=== PATIENT | female | born 1960 ===

== ENCOUNTER 2017-05-27 07:57 | Emergency (ER) | payer OTHER, SELFPAY ==
[2017-05-27 07:58] VITALS: BMI 25.4
[2017-05-27 08:04] VITALS: O2SAT 100
--- NOTE | 2017-05-27 08:47 | C.PDOC ---
History Of Present Illness Patient is a 57 y/o F presenting with report of taking medication in error. 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 She reports that this medication was prescribed to her by her PMD for depression but she reports that she does not want to take it. She reports that she was concerned about the side effects of this medication so she came to the ED. She reports that immediately after realizing she took the wrong medication she felt some dry mouth and anxiety but reports that she feels better now. She denies homicidal or suicidal ideation. Time Seen by Provider: 05/27/17 08:17 Chief Complaint (Nursing): Medical Clearance Past Medical History Vital Signs: Last Vital Signs Temp 98.2 F 05/27/17 08:03 Pulse 64 05/27/17 08:03 Resp 18 05/27/17 08:20 BP 135/79 05/27/17 08:03 Pulse Ox 100 05/27/17 08:49 - Medical History PMH: Hypothyroidism Denies: Chronic Kidney Disease, Seizures Surgical History: Cholecystectomy Family History: States: Unknown Family Hx - Social History Hx Tobacco Use: No Hx Alcohol Use: No Hx Substance Use: No - Immunization History Hx Tetanus Toxoid Vaccination: No Hx Influenza Vaccination: No Hx Pneumococcal Vaccination: No Review Of Systems Constitutional: Negative for: Fever, Chills Cardiovascular: Negative for: Chest Pain, Palpitations Respiratory: Negative for: Cough, Shortness of Breath, SOB with Excertion, Wheezing Gastrointestinal: Negative for: Nausea, Vomiting, Abdominal Pain, Diarrhea, Constipation Psych: Positive for: Anxiety (now resolved). Negative for: Depression, Suicidal ideation ED Course And Treatment O2 Sat by Pulse Oximetry: 100 Medical Decision Making Medical Decision Making: Patient is resting comfortably in NAD. Vitals WNL. Normal physical exam. She is asyptomatic in ED and tolerating po. She was provided reassurance that taking one dose of medication in error should not cause any side effects. She was reassured and instructed to follow-up with PMD and discuss with him why she does not want to take a medication he prescribed. She is requesting refill of her levothyroxine refill (50mcg) and will provide until she can follow-up with PMD Disposition - Disposition Disposition: HOME/ ROUTINE Disposition Time: 08:43 Condition: GOOD Additional Instructions: Follow-up with PMD within 2 days. Do not store medication you are not taking with medication you are taking to avoid medication errors. Speak with your PMD about medication you should be taking. Return to ED if condition worsens. Prescriptions: Levothyroxine [Synthroid] 0.05 mg PO DAILY #30 tab Forms: [employer] (Kinyarwanda) - Clinical Impression Clinical Impression: Medication administered in error
[2017-05-27 09:04] VITALS: BP 135/83; PULSE 52; RESP 20; TEMP 97.4
== END 2017-05-27 09:06 | disposition home or self-care (01) ==
LOC: C.ER 07:57
DX: T43.221A Poisoning by selective serotonin reuptake inhibitors, accidental (unintentional), initial encounter (principal)

== ENCOUNTER 2017-10-11 18:10 | Emergency (ER) | payer OTHER ==
[2017-10-11 18:10] VITALS: BMI 24.8
[2017-10-11 18:25] VITALS: TEMP 98.6
[2017-10-11 19:05] LABS: URINE BACTERIA RARE (<OCC); URINE BILIRUBIN NEGATIVE (NEGATIVE); URINE CLARITY Clear (Clear); URINE COLOR Yellow (YELLOW); URINE GLUCOSE (UA) NORMAL (Normal); URINE LEUKOCYTE ESTERASE NEG Leu/uL (Negative); URINE PROTEIN NEGATIVE (NEGATIVE); URINE UROBILINOGEN NORMAL mg/dL (0.2-1.0)
[2017-10-11 19:13] LABS: URINE BLOOD NEGATIVE (NEGATIVE)
--- NOTE | 2017-10-11 19:13 | C.PDOC ---
History Of Present Illness 57 year old female presents to the ED for evaluation of sore throat and generalized body aches which began around 1 week ago. Patient also reports dysuria and states she has a history of multiple UTIs. Patient states she took one 200mg tablet of Motrin both yesterday and the day before yesterday. She denies fever, chills, nausea, vomiting, abdominal pain. Time Seen by Provider: 10/11/17 18:30 Chief Complaint (Nursing): Flu-like Symptoms History Per: Patient History/Exam Limitations: no limitations Onset/Duration Of Symptoms: Other (1 week) Current Symptoms Are (Timing): Still Present Associated Symptoms: Sore Throat. denies: Fever, Chills, Nausea, Vomiting Additional History Per: Patient Past Medical History Reviewed: Historical Data, Nursing Documentation, Vital Signs Vital Signs: Last Vital Signs Temp 98.6 F 10/11/17 18:23 Pulse 58 L 10/11/17 18:23 Resp 18 10/11/17 18:23 BP 124/80 10/11/17 18:23 Pulse Ox 97 10/11/17 19:13 - Medical History PMH: Hypothyroidism Denies: Chronic Kidney Disease, Seizures Surgical History: Cholecystectomy Family History: States: Unknown Family Hx - Social History Hx Tobacco Use: No Hx Alcohol Use: No Hx Substance Use: No - Immunization History Hx Tetanus Toxoid Vaccination: No Hx Influenza Vaccination: No Hx Pneumococcal Vaccination: No Review Of Systems Constitutional: Negative for: Fever, Chills ENT: Positive for: Throat Pain Gastrointestinal: Negative for: Nausea, Vomiting, Abdominal Pain Musculoskeletal: Positive for: Other (generalized body aches ) Physical Exam - Physical Exam Appears: Non-toxic, No Acute Distress Skin: Normal Color, Warm, Dry Head: Atraumatic, Normacephalic Eye(s): bilateral: Normal Inspection Ear(s): Bilateral: Normal Nose: Normal, No Discharge Oral Mucosa: Moist Throat: Normal, No Erythema, No Exudate Neck: Supple Chest: Symmetrical, No Deformity, No Tenderness Cardiovascular: Rhythm Regular, No Murmur Respiratory: Normal Breath Sounds, No Rales, No Rhonchi, No Wheezing Extremity: Normal ROM, Capillary Refill (less than 2 seconds ) Neurological/Psych: Oriented x3, Normal Speech, Normal Cognition ED Course And Treatment - Laboratory Results Lab Interpretation: Normal (UA neg.) O2 Sat by Pulse Oximetry: 97 (on RA) Pulse Ox Interpretation: Normal Progress Note: UA ordered and reviewed. Motrin PO administered. Medical Decision Making Medical Decision Making: mild viral syndrome for 1 week, normal exam and normal VS's sore throat but normal exam no LUDY/fevers dysuria with h/o UTI's, normal UA improved with motrin PO Disposition Doctor Will See Patient In The: Office Counseled Patient/Family Regarding: Studies Performed, Diagnosis - Disposition Disposition: HOME/ ROUTINE Disposition Time: 19:26 Condition: GOOD Forms: [employer] (Indonesian) - Clinical Impression Clinical Impression: Sore throat (viral), Dysuria - Scribe Statement The provider has reviewed the documentation as recorded by the Scribe (Cristina Medina) Provider Attestation: All medical record entries made by the Scribe were at my direction and personally dictated by me. I have reviewed the chart and agree that the record accurately reflects my personal performance of the history, physical exam, medical decision making, and the department course for this patient. I have also personally directed, reviewed, and agree with the discharge instructions and disposition.
[2017-10-11 19:37] VITALS: BP 118/78; PULSE 62; RESP 16; O2SAT 98
== END 2017-10-11 19:35 | disposition home or self-care (01) ==
LOC: C.ER 18:10
DX: J02.8 Acute pharyngitis due to other specified organisms (principal); B97.89 Other viral agents as the cause of diseases classified elsewhere; R30.0 Dysuria

== ENCOUNTER 2018-01-24 05:05 | Emergency (ER) | payer OTHER ==
[2018-01-24 05:05] VITALS: BMI 24.8
[2018-01-24] MEDS ORDERED: Acetaminophen-Codeine 300/30 mg Tab PO STA (05:36)
[2018-01-24] MEDS ORDERED: Acetaminophen-Codeine 300/30 mg Tab PO ONE (05:43)
--- NOTE | 2018-01-24 05:43 | C.PDOC ---
History Of Present Illness 58 year old female presents to the ER with a complaint of sore throat for the past 2 weeks. Patient took OTC motrin and gargled warm water with no relief. Patient also complains of bilateral eye drainage w/ yellowish discharge, eye discomfort/itching, headache, and nasal congestion. Denies cough, SOB, or change in vision. Time Seen by Provider: 01/24/18 05:17 Chief Complaint (Nursing): Cough, Cold, Congestion History Per: Patient History/Exam Limitations: no limitations Onset/Duration Of Symptoms: Days Current Symptoms Are (Timing): Still Present Location Of Pain: None Sick Contacts (Context): None Associated Symptoms: Sore Throat, Nasal Congestion, Other (Headache, eye discomfort/discharge/itching) Ear Symptoms: Bilateral: None Recent travel outside of the [place]: No Past Medical History Reviewed: Historical Data, Nursing Documentation, Vital Signs Vital Signs: Last Vital Signs Temp 98.3 F 01/24/18 05:12 Pulse 68 01/24/18 05:12 Resp 16 01/24/18 05:12 BP 150/91 H 01/24/18 05:12 Pulse Ox 98 01/24/18 05:49 - Medical History PMH: Hypothyroidism Denies: Chronic Kidney Disease, Seizures Surgical History: Cholecystectomy Family History: States: Unknown Family Hx - Social History Hx Tobacco Use: No Hx Alcohol Use: No Hx Substance Use: No - Immunization History Hx Tetanus Toxoid Vaccination: No Hx Influenza Vaccination: No Hx Pneumococcal Vaccination: No Review Of Systems Constitutional: Negative for: Fever, Chills Eyes: Positive for: Other (drainage w/ yellowish discharge, discomfort/itching) . Negative for: Vision Change ENT: Positive for: Nose Congestion, Throat Pain Respiratory: Negative for: Cough, Shortness of Breath Neurological: Positive for: Headache Physical Exam - Physical Exam Appears: Non-toxic Skin: Normal Color, Warm, Dry Head: Atraumatic, Normacephalic Eye(s): bilateral: PERRL, EOMI, Other (Ciliary injection, watery discharge, no crusting) Ear(s): Bilateral: Normal Nose: Normal Oral Mucosa: Moist Throat: Normal, No Erythema, No Exudate Neck: Normal, Supple Lymphatic: Adenopathy (Submandibular) Chest: Symmetrical, No Tenderness Cardiovascular: Rhythm Regular Respiratory: Normal Breath Sounds, No Rales, No Rhonchi, No Wheezing Neurological/Psych: Oriented x3, Normal Speech ED Course And Treatment O2 Sat by Pulse Oximetry: 98 (room air) Pulse Ox Interpretation: Normal Progress Note: Rapid strep ordered, result was negative. Viscous lidocaine and tylenol w/ codeine administered. Patient reports improvement of symptoms, she is resting comfortably in the ER in no acute distress, vitals are stable, will discharge home with Rx and instructions to follow up with PMD or return if symptoms worsen. Disposition Counseled Patient/Family Regarding: Diagnosis, Need For Followup, Rx Given - Disposition Disposition: HOME/ ROUTINE Disposition Time: 06:30 Condition: STABLE Additional Instructions: Use CHLORASEPTIC SPRAY TO SPRAY THROT PRIOR TO EATING/ DRINKING WARM SALT GARGLE TAKE MEDICATIONS DIRECTED RETURN TO ER IF WORSE Prescriptions: Cetirizine HCl [Zyrtec] 10 mg PO DAILY #20 capsule Dexamethasone/Tobramycin [Tobradex 0.1%-0.3% 2.5 Ml] 1 drop OP BID #1 bottle Naproxen [Naprosyn] 1 tab PO BID PRN #14 tab PRN Reason: Pain Instructions: Viral Pharyngitis (DC), Conjunctivitis (Noninfectious Pinkeye) Forms: [employer] (Greek) Print Language: MOHAWK - Clinical Impression Clinical Impression: Pharyngitis, Conjunctivitis - PA / FRAMER / Resident Statement MD/DO has reviewed & agrees with the documentation as recorded. - Scribe Statement The provider has reviewed the documentation as recorded by the Scribameena Carroll All medical record entries made by the Melodieibameena were at my direction and personally dictated by me. I have reviewed the chart and agree that the record accurately reflects my personal performance of the history, physical exam, medical decision making, and the department course for this patient. I have also personally directed, reviewed, and agree with the discharge instructions and disposition.
[2018-01-24 06:47] VITALS: BP 146/88; PULSE 60; RESP 14; TEMP 98.1; O2SAT 97
== END 2018-01-24 06:53 | disposition home or self-care (01) ==
LOC: C.ER 05:05
DX: J02.9 Acute pharyngitis, unspecified (principal); H10.9 Unspecified conjunctivitis

== ENCOUNTER 2018-08-09 21:55 | Inpatient (IN) | payer OTHER, SELFPAY ==
[2018-08-09 21:55] VITALS: BMI 24.8
[2018-08-09 22:50] LABS: BASO # 0.1 K/uL (0.0-0.2); EOS # 0.2 K/uL (0.0-0.7); EOS % 3.5 % (0.0-4.0); HEMOGLOBIN 12.6 g/dL (11.0-16.0); LYMPH # 1.8 K/uL (1.0-4.3); MEAN CELL VOLUME 87.9 fL (81.0-99.0); MEAN CORPUSCULAR HEMOGLOBIN 29.2 pg (27.0-31.0); MEAN CORPUSCULAR HGB CONC 33.2 g/dL (33.0-37.0); MEAN PLATELET VOLUME 7.6 fL (7.2-11.7); MONO # 0.5 K/uL (0.0-0.8); MONO % 7.3 % (0.0-10.0); NEUT # 3.8 K/uL (1.8-7.0); NEUT % 60.2 % (50.0-75.0); NRBC % 0.1 % (0.0-2.0); RBC 4.31 Mil/uL (3.80-5.20); RED CELL DISTRIBUTION WIDTH 15.1 % (11.5-14.5); WHITE BLOOD COUNT 6.4 K/uL (4.8-10.8)
[2018-08-09 23:01] LABS: ALB/GLOB RATIO 1.2 (1.0-2.1); ALBUMIN 4.7 g/dL (3.5-5.0); AST/SGOT 28 U/L (14-36); BLOOD UREA NITROGEN 19 mg/dL (7-17); CALCIUM 9.3 mg/dl (8.6-10.4); GFR NON-AFRICAN AMERICAN > 60
[2018-08-09 23:25] LABS: ALT/SGPT < 6 U/L (9-52)
[2018-08-09 23:35] LABS: T3 0.961 nmol/L (1.49-2.60)
[2018-08-10] MEDS ORDERED: Levothyroxine 200 mcg (0.2 mg) Inj IVP STA (00:39)
--- NOTE | 2018-08-10 01:32 | CP.PCM.HP ---
<Mike Mueller - Last Filed: 08/10/18 02:08> History of Present Illness - History of Present Illness History of Present Illness: cc:"I dont take my synthroid I feel weak now help me" 58F PMHx of HYPOthyroid and HLD presents to the ED with a 2 days hx of feeling tired and weak. She also complains of neck swelling that has become gradually bigger. Pt reports she has not taken her Synthroid pills for 5 months because she doesn't like the way she feels with them. She got a sudden onsent in the last 2 days, now feels worsening fatigue and malaise. Pt says this happened to her 3 years ago but it was much worse, she passed out and woke up in the hospital. Pt says she has seen Dr Norman before in the past for her hypothyroidism as well. Pt says she was previously well controlled on 50mcg Synthroid presrcibed by Dr Yo her PMD. 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 Allergies: PCN (rash, itch) Home Rx Synthroid 50mcg PO - non compliant since 5mo ago Present on Admission - Present on Admission Any Indicators Present on Admission: No Review of Systems - Constitutional Constitutional: Fatigue, Lethargy, Malaise - EENT Eyes: absent: Change in Vision - Cardiovascular Cardiovascular: Lightheadedness, Slow Heart Rate - Respiratory Respiratory: absent: Dyspnea - Gastrointestinal Gastrointestinal: absent: Abdominal Pain, Diarrhea, Vomiting - Genitourinary Genitourinary: absent: Change in Urinary Stream, Dysuria - Musculoskeletal Musculoskeletal: absent: Numbness, Stiffness - Neurological Neurological: Dizziness, Weakness - Psychiatric Psychiatric: Depression Past Patient History - Infectious Disease Hx of Infectious Diseases: None - Past Medical History & Family History Past Medical History?: Yes - Past Social History Smoking Status: Never Smoked - CARDIAC Hx Cardiac Disorders: No - PULMONARY Hx Respiratory Disorders: No - NEUROLOGICAL Hx Seizures: No - HEENT Hx HEENT Problems: No - RENAL Hx Chronic Kidney Disease: No - ENDOCRINE/METABOLIC Hx Hypothyroidism: Yes - HEMATOLOGICAL/ONCOLOGICAL Hx Blood Disorders: Yes Hx Hepatitis B: Yes - INTEGUMENTARY Hx Dermatological Problems: No - MUSCULOSKELETAL/RHEUMATOLOGICAL Hx Falls: No - GASTROINTESTINAL Hx Gastrointestinal Disorders: No - GENITOURINARY/GYNECOLOGICAL Hx Genitourinary Disorders: Yes Hx Urinary Tract Infection: Yes - PSYCHIATRIC Hx Psychophysiologic Disorder: No Hx Substance Use: No - SURGICAL HISTORY Hx Cholecystectomy: Yes - ANESTHESIA Hx Anesthesia: Yes Hx Anesthesia Reactions: No Meds Allergies/Adverse Reactions: Allergies Allergy/AdvReac Type Severity Reaction Status Date / Time Penicillins Allergy RASH Verified 08/09/18 22:05 Physical Exam - Constitutional Appears: No Acute Distress - Head Exam Head Exam: ATRAUMATIC, NORMAL INSPECTION - Eye Exam Eye Exam: EOMI, Normal appearance - ENT Exam ENT Exam: Mucous Membranes Moist - Neck Exam Neck exam: Positive for: Thyromegaly (bilateral goiter) - Respiratory Exam Respiratory Exam: Clear to Auscultation Bilateral, NORMAL BREATHING PATTERN. absent: Wheezes - Cardiovascular Exam Cardiovascular Exam: Bradycardia, +S1, +S2 - GI/Abdominal Exam GI & Abdominal Exam: Normal Bowel Sounds. absent: Firm, Tenderness - Extremities Exam Extremities exam: Positive for: full ROM, normal capillary refill, pedal pulses present - Neurological Exam Neurological exam: Alert, CN II-XII Intact, Oriented x3 (cereased, +1 bicep and quadriceps bilaterally) - Psychiatric Exam Psychiatric exam: Normal Affect, Normal Mood - Skin Skin Exam: Dry, Normal Color, Warm Results - Vital Signs Recent Vital Signs: Last Vital Signs Temp 98.8 F 08/09/18 21:58 Pulse 60 08/10/18 01:12 Resp 18 08/10/18 01:12 BP 141/76 08/10/18 01:12 Pulse Ox 99 08/10/18 01:12 - Labs Result Diagrams: 08/09/18 22:45 08/09/18 22:45 Labs: Laboratory Results - last 24 hr 08/09/18 08/09/18 22:45 22:45 WBC 6.4 RBC 4.31 Hgb 12.6 Hct 37.9 MCV 87.9 D MCH 29.2 MCHC 33.2 RDW 15.1 H Plt Count 300 D MPV 7.6 Neut % (Auto) 60.2 Lymph % (Auto) 28.0 Hughes % (Auto) 7.3 Eos % (Auto) 3.5 Baso % (Auto) 1.0 Neut # (Auto) 3.8 Lymph # (Auto) 1.8 Hughes # (Auto) 0.5 Eos # (Auto) 0.2 Baso # (Auto) 0.1 Sodium 138 Potassium 4.2 Chloride 101 Carbon Dioxide 30 Anion Gap 11 BUN 19 H Creatinine 0.8 Est GFR ( Amer) > 60 Est GFR (Non-Af Amer) > 60 Random Glucose 113 H D Calcium 9.3 Total Bilirubin 1.0 AST 28 ALT < 6 L D Alkaline Phosphatase 66 Troponin I < 0.0120 Total Protein 8.4 H Albumin 4.7 Globulin 3.8 Albumin/Globulin Ratio 1.2 Total T3 0.961 L TSH 3rd Generation 211.00 H Assessment & Plan - Assessment and Plan (Free Text) Assessment: 58F pmhx of hypothyroidism non compliant with meds admitted for symptomatics bradycardia likely 2/2 to uncontrolled hypothyroidism Plan: Hypothyroidism -TSH 211 -T3 0.9 -f/u T4, Thy Ab, ACTH, AM Cortisol -f/u Thyroid US -Dr Norman consulted f/u recs -given 100mcg of Synthroid IVP in ED -50 synthroid PO @ 630am -monitor vitals -Tele Symptomatic Bradycardia -likely 2/2 to uncontrolled hypothyroidism -Admit to Tele -f/u CBC, CMP in AM -EKG NSR bradycardic Bilateral Goiter -f/u Thyroid US -f/u Thy Ab PPx -fall risk protocol -no DVT or GI ppx at this time <Wilfred Younger - Last Filed: 08/10/18 06:17> Results - Vital Signs Recent Vital Signs: Last Vital Signs Temp 98.1 F 08/10/18 01:57 Pulse 55 L 08/10/18 01:57 Resp 18 08/10/18 01:57 BP 141/81 08/10/18 01:57 Pulse Ox 95 08/10/18 05:50 - Labs Result Diagrams: 08/09/18 22:45 08/09/18 22:45 Labs: Laboratory Results - last 24 hr 08/09/18 08/09/18 22:45 22:45 WBC 6.4 RBC 4.31 Hgb 12.6 Hct 37.9 MCV 87.9 D MCH 29.2 MCHC 33.2 RDW 15.1 H Plt Count 300 D MPV 7.6 Neut % (Auto) 60.2 Lymph % (Auto) 28.0 Hughes % (Auto) 7.3 Eos % (Auto) 3.5 Baso % (Auto) 1.0 Neut # (Auto) 3.8 Lymph # (Auto) 1.8 Hughes # (Auto) 0.5 Eos # (Auto) 0.2 Baso # (Auto) 0.1 Sodium 138 Potassium 4.2 Chloride 101 Carbon Dioxide 30 Anion Gap 11 BUN 19 H Creatinine 0.8 Est GFR ( Amer) > 60 Est GFR (Non-Af Amer) > 60 Random Glucose 113 H D Calcium 9.3 Total Bilirubin 1.0 AST 28 ALT < 6 L D Alkaline Phosphatase 66 Troponin I < 0.0120 Total Protein 8.4 H Albumin 4.7 Globulin 3.8 Albumin/Globulin Ratio 1.2 Total T3 0.961 L TSH 3rd Generation 211.00 H Assessment & Plan - Date & Time Date: 08/10/18 (I have seen and examined the patient. I agree with the findings and plan of care as documented by Dr. Mueller. Patient with symptomatic bradycardia. Hypothyroidism. Noncompliant with meds for past 3 months. IV s ynthroid given in ED. Restart PO meds in AM. Monitor on tele. Consult to Endo. Monitor for acute changes.) Time: 06:15 Attending/Attestation - Attestation I have personally seen and examined this patient.: Yes I have fully participated in the care of the patient.: Yes I have reviewed all pertinent clinical information: Yes
--- NOTE | 2018-08-10 04:17 | C.PDOC ---
History Of Present Illness 58 year old female with PMHx of hypothyroidism presents to the ED c/o dizziness, feeling tired for the past 3 days. Patient reports her dizzy spells are intermittent throughout the day and when she goes to bed. Patient is non complai nt with her Levothyroxine, has not taken it for the past 5 months. Patient denies fever, chills, body aches, CO, SOB, abdominal pain, nausea, vomit, rash. Time Seen by Provider: 08/09/18 22:06 Chief Complaint (Nursing): Shortness Of Breath History Per: Patient History/Exam Limitations: no limitations Onset/Duration Of Symptoms: Days (3) Current Symptoms Are (Timing): Still Present Recent travel outside of the [place]: No Additional History Per: Patient Past Medical History Reviewed: Historical Data, Nursing Documentation, Vital Signs Vital Signs: Last Vital Signs Temp 98.1 F 08/10/18 01:57 Pulse 55 L 08/10/18 01:57 Resp 18 08/10/18 01:57 BP 141/81 08/10/18 01:57 Pulse Ox 95 08/10/18 01:57 - Medical History PMH: Hypothyroidism Denies: Chronic Kidney Disease, Seizures Surgical History: Cholecystectomy Family History: States: Unknown Family Hx - Social History Hx Tobacco Use: No Hx Alcohol Use: No Hx Substance Use: No - Immunization History Hx Tetanus Toxoid Vaccination: No Hx Influenza Vaccination: No Hx Pneumococcal Vaccination: No Review Of Systems Constitutional: Positive for: Weakness, Malaise. Negative for: Fever, Chills Cardiovascular: Negative for: Chest Pain, Palpitations Respiratory: Negative for: Cough, Shortness of Breath Gastrointestinal: Negative for: Nausea, Vomiting, Abdominal Pain Skin: Negative for: Rash Neurological: Positive for: Dizziness. Negative for: Weakness, Numbness, Headache Physical Exam - Physical Exam Appears: Non-toxic, No Acute Distress Skin: Normal Color, Warm, Dry Head: Atraumatic, Normacephalic Eye(s): bilateral: Normal Inspection Oral Mucosa: Moist Neck: Normal ROM, Supple Chest: Symmetrical Cardiovascular: Rhythm Regular Respiratory: Normal Breath Sounds, No Rales, No Rhonchi, No Wheezing Gastrointestinal/Abdominal: Soft, No Tenderness, No Guarding, No Rebound Extremity: Normal ROM, No Tenderness, No Swelling Neurological/Psych: Oriented x3, Normal Speech, Normal Cognition Gait: Steady ED Course And Treatment - Laboratory Results Result Diagrams: 08/09/18 22:45 08/09/18 22:45 Lab Results: Troponin I < 0.0120 ng/mL (0.00-0.120) 08/09/18 22:45 Total Bilirubin 1.0 mg/dL (0.2-1.3) 08/09/18 22:45 AST 28 U/L (14-36) 08/09/18 22:45 ALT < 6 U/L (9-52) L D 08/09/18 22:45 Alkaline Phosphatase 66 U/L (38-126) 08/09/18 22:45 Total Protein 8.4 g/dL (6.3-8.3) H 08/09/18 22:45 Albumin 4.7 g/dL (3.5-5.0) 08/09/18 22:45 Globulin 3.8 gm/dL (2.2-3.9) 08/09/18 22:45 Albumin/Globulin Ratio 1.2 (1.0-2.1) 08/09/18 22:45 ECG: Interpreted By Me, Viewed By Me ECG Rhythm: Sinus Bradycardia Rate From EC (BPM) O2 Sat by Pulse Oximetry: 95 (On RA) Pulse Ox Interpretation: Normal Medical Decision Making Medical Decision Making: Plan: * Labs * EKG * CXR * Levothyroxine 100 mcg IVP Patient's TSH was 211, patient was given Levothyroxine and will be admitted to telemetry under the hospitalist service. Disposition - Disposition Disposition: HOSPITALIZED Disposition Time: 00:20 Condition: FAIR - Clinical Impression Clinical Impression: Hypothyroidism, Bradycardia, Dizziness - Scribe Statement The provider has reviewed the documentation as recorded by the Scribe Geovanni Denis All medical record entries made by the Scribe were at my direction and personally dictated by me. I have reviewed the chart and agree that the record accurately reflects my personal performance of the history, physical exam, medical decision making, and the department course for this patient. I have also personally directed, reviewed, and agree with the discharge instructions and disposition.
[2018-08-10] MEDS ORDERED: Levothyroxine 50 MCG TAB PO SCH (06:30)
--- NOTE | 2018-08-10 08:06 | CP.PCM.PN ---
<Evonne Gama - Last Filed: 08/10/18 09:38> Subjective - Date & Time of Evaluation Date of Evaluation: 08/10/18 Time of Evaluation: 08:00 - Subjective Subjective: PGY1 Medicine Progress Note for Patient was seen and evaluated at bedside this morning. No acute events. Patient admits to fatigue. Patient otherwise denies chest pain, abdominal pain, shortness of breath, back pain, lower extremity pain, numbness/tingling, dizziness, headache, nausea, vomiting, fever, and/or chills Objective - Vital Signs/Intake and Output Vital Signs (last 24 hours): Temp Pulse Resp BP Pulse Ox 98.1 F 55 L 18 141/81 95 08/10/18 01:57 08/10/18 01:57 08/10/18 01:57 08/10/18 01:57 08/10/18 05:50 - Medications Medications: Current Medications Levothyroxine Sodium (Levothyroxine) 100 mcg IVP DAILY [facility] Levothyroxine Sodium (Levothyroxine) 100 mcg IV STAT STA Stop: 08/10/18 08:00 - Labs Labs: 08/09/18 22:45 08/09/18 22:45 - Additional Findings Additional findings: - Constitutional Appears: No Acute Distress - Head Exam Head Exam: ATRAUMATIC, NORMAL INSPECTION - Eye Exam Eye Exam: EOMI, Normal appearance - ENT Exam ENT Exam: Mucous Membranes Moist - Neck Exam Neck exam: Positive for: Thyromegaly (bilateral goiter) - Respiratory Exam Respiratory Exam: Clear to Auscultation Bilateral, NORMAL BREATHING PATTERN. absent: Wheezes - Cardiovascular Exam Cardiovascular Exam: Bradycardia, +S1, +S2 - GI/Abdominal Exam GI & Abdominal Exam: Normal Bowel Sounds. absent: Firm, Tenderness - Extremities Exam Extremities exam: Positive for: full ROM, normal capillary refill, pedal pulses present - Neurological Exam Neurological exam: Alert, CN II-XII Intact, Oriented x3 (cereased, +1 bicep and quadriceps bilaterally) - Psychiatric Exam Psychiatric exam: Normal Affect, Normal Mood - Skin Skin Exam: Dry, Normal Color, Warm Assessment and Plan - Assessment and Plan (Free Text) Assessment: 58F pmhx of hypothyroidism non compliant with meds admitted for symptomatic bradycardia likely 2/2 to uncontrolled hypothyroidism Plan: Hypothyroidism - Patient has been non-compliant with her medications for at least 5 months - TSH 211 - T3 0.9 - F/U T4, Thy Ab, ACTH, AM Cortisol - Thyroid US pending read - Endocrinology consulted (Dr Norman); rec. appreciated - Started on Synthroid 100mcg IVP Daily - given 100mcg of Synthroid IVP in ED - 50mcg synthroid PO @ 630am - 100mcg synthroid IV ONCE - Monitor vitals - Monitor in Telemetry Symptomatic Bradycardia - Likely 2/2 to uncontrolled hypothyroidism - Monitor in telemetry - f/u CBC, CMP in AM - EKG: NSR bradycardic - ECHO ordered Bilateral Goiter - Thyroid US pending - f/u Thyroid Antibody PPx - Fall risk protocol - DVT: SCD, Heparin 5000u Q12H - No GI ppx at this time Patient seen and case discussed in detail with Dr. Nikki Gama PGY1 <Eric Jordan - Last Filed: 08/10/18 14:05> Objective - Vital Signs/Intake and Output Vital Signs (last 24 hours): Temp Pulse Resp BP Pulse Ox 97.6 F 51 L 20 115/78 96 08/10/18 08:50 08/10/18 08:50 08/10/18 08:50 08/10/18 08:50 08/10/18 08:50 - Medications Medications: Current Medications Heparin Sodium (Porcine) (Heparin) 5,000 units SC Q12 [facility] Last Admin: 08/10/18 09:17 Dose: 5,000 units Levothyroxine Sodium (Synthroid) 100 mcg IVP DAILY@0630 [facility] - Labs Labs: 08/10/18 10:52 08/10/18 10:52 Attending/Attestation - Attestation I have personally seen and examined this patient.: Yes I have fully participated in the care of the patient.: Yes I have reviewed all pertinent clinical information, including history, physical exam and plan: Yes Notes (Text): 08/10/18 14:04 Medical attending: Patient was seen and examined by me. Agree with the above note by the resident The patient reported ongoing weakness jude fatigue for quite a long time now Review of the telemetry shows sinus bradycardia Will give another 100 mcg IV synthroid as well as the PO Eric Jordan
[2018-08-10] MEDS ORDERED: Levothyroxine 200 mcg (0.2 mg) Inj IVP SCH (08:30)
[2018-08-10] MEDS ORDERED: Levothyroxine 200 mcg (0.2 mg) Inj IVP ONE (08:30)
--- NOTE | 2018-08-10 10:16 | RAD ---
Date of service: 08/09/2018 HISTORY: chest pain COMPARISON: Chest radiographs 07/24/2016. FINDINGS: LUNGS: No active pulmonary disease. PLEURA: No significant pleural effusion identified, no pneumothorax apparent. CARDIOVASCULAR: No aortic atherosclerotic calcification present. Normal cardiac size. No pulmonary vascular congestion. OSSEOUS STRUCTURES: No significant abnormalities. VISUALIZED UPPER ABDOMEN: Normal. OTHER FINDINGS: None. IMPRESSION: No interval acute cardiopulmonary disease appreciated.
[2018-08-10 11:03] LABS: BASO # 0.1 K/uL (0.0-0.2); BASO % 1.3 % (0.0-2.0); EOS # 0.2 K/uL (0.0-0.7); EOS % 4.7 % (0.0-4.0); HEMOGLOBIN 12.8 g/dL (11.0-16.0); LYMPH # 1.6 K/uL (1.0-4.3); LYMPH % 31.7 % (20.0-40.0); MEAN CELL VOLUME 87.4 fL (81.0-99.0); MEAN CORPUSCULAR HEMOGLOBIN 28.8 pg (27.0-31.0); MEAN PLATELET VOLUME 7.7 fL (7.2-11.7); MONO # 0.4 K/uL (0.0-0.8); MONO % 6.9 % (0.0-10.0); NEUT # 2.9 K/uL (1.8-7.0); NEUT % 55.4 % (50.0-75.0); RBC 4.45 Mil/uL (3.80-5.20); RED CELL DISTRIBUTION WIDTH 15.2 % (11.5-14.5); WHITE BLOOD COUNT 5.2 K/uL (4.8-10.8)
[2018-08-10 11:29] LABS: ALB/GLOB RATIO 1.3 (1.0-2.1); ALBUMIN 4.5 g/dL (3.5-5.0); ALT/SGPT 6 U/L (9-52); AST/SGOT 28 U/L (14-36); BLOOD UREA NITROGEN 13 mg/dL (7-17); CALCIUM 8.9 mg/dl (8.6-10.4); GFR NON-AFRICAN AMERICAN > 60
--- NOTE | 2018-08-10 13:39 | CON ---
DATE: 08/10/2018 LOCATION: Room 571. HISTORY OF PRESENT ILLNESS: This is a 58-year-old female with known history of hypothyroidism, previously on levothyroxine given as 50 mcg daily and apparently stopped the medication over six months ago and developed, as expected, an insidious but progressive bout of constitutional symptoms of generalized body weakness, malaise, easy fatigability and tiredness, and suboptimal energy level. Over the last few weeks, she admits to increasing bouts of dizziness and lightheadedness with progressive shortness of breath on exertion prompting this ER consult and subsequent admission. She admits to having adverse side effects to her medication, but was not actually seen by me in my office but only for inpatient hospital consults. She was supposed to follow with Dr. Dulce Yo, but again was lost to followup with no recent blood testing. PAST MEDICAL HISTORY: As mentioned above, history of hypothyroidism, supposedly on 50 mcg daily of levothyroxine, which she discontinued as mentioned above; history of dyslipidemia. FAMILY HISTORY: No known thyroid endocrinopathy. SOCIAL HISTORY: The patient has a supportive family. No known substance use. REVIEW OF SYSTEMS: Admits to generalized body weakness with progressive bouts of dizziness and lightheadedness and bifrontal headaches, worse in the last few weeks prior to admission. Also admits to increasing hypersomnolence and lethargy, again worse in the last few weeks prior to admission. No chest pain, but admits to progressive shortness of breath, especially on exertion. Her oral intake has been variable with nausea, dyspepsia and vague abdominal pains with marked habitual constipation. PHYSICAL EXAMINATION: GENERAL: This is an average-built female, in no apparent distress, but extremely hypersomnolent and lethargic. VITAL SIGNS: Blood pressure of 130/80, pulse initially of 48 beats per minute, but today is 55 beats per minute, respirations 20, heart rate is 55. Height is 5 feet 3 inches. Weight is 138 pounds. HEENT: Head is normocephalic. Eyes anicteric with pink conjunctivae. There is marked facial and periorbital edema. Funduscopy is not possible at this time. Ears, nose, and throat otherwise normal. NECK: Supple. Thyroid gland shows nodular thyromegaly, which is firm and nontender. HEART: Adynamic precordium. S1 and S2 is slow and regular. LUNGS: Clear to auscultation. ABDOMEN: Flat, soft with positive bowel sounds. EXTREMITIES: No peripheral edema. Pulses are +2 bilaterally. LABORATORY DATA: Her chemistries shows a BUN of 19, sodium 138, potassium 4.2, chloride 101, CO2 of 30, glucose 113, creatinine 0.8. Her TSH is 211. 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 She most likely has underlying autoimmune thyroiditis with a concomitant nontoxic nodular goiter. PLAN OF MANAGEMENT: We will give parenteral levothyroxine replacement therapy, ideally would have given 400 mcg IV push, but she already received 100 mcg early this morning and we will give another stat dose of 100 mcg today as ordered. We will also give daily levothyroxine 100 mcg IV push daily for the next 3 to 5 days to fully replenish the diminished peripheral stores as oral levothyroxine replacement therapy will not be effective since this tremendous edema of the gastric mucosa impeding the full absorption of the oral levothyroxine tablet. We would recommend a discharge dose of at least 100 mcg daily as the average person requires 1.7 mcg/kg per day and with her weight, she requires at least 100 mcg daily and/or higher and those titrations can be done only with close diligent outpatient followup with not only lab testing but also medical evaluation and would highly recommend that she follows with Dr. Yo in our clinic here at [facility] as she already has a rapport with her. We would concur with the present diagnostic testing and evaluation and would doubt the presence of any underlying hypoadrenalism as she is already a diagnosed patient. So, we will hold off empirical steroid therapy at this time. Thyroid antibodies have been sent out, which will confirm and/or negate the presence of underlying thyroid autoimmunity. We will obtain serial thyroid studies, especially a total T4 or thyroxine level, which is a more valid and accurate marker than a free T4 for followup in combination with TSH levels for dose adjustments and titrations accordingly. Destiny Norman MD
--- NOTE | 2018-08-10 14:12 | US ---
Date of service: 08/10/2018 HISTORY: symytomatic goiter TECHNIQUE: Sonographic evaluation of the thyroid gland. COMPARISON: Thyroid ultrasound 08/06/2015. FINDINGS: RIGHT LOBE: Measures 4.5 x 2.2 x 2.0 cm. Heterogeneous echotexture pattern is reiterated with hypervascularity on color Doppler ultrasound. A discrete nodule of differing echogenicity is not clearly identified although a stable posterior lobular component related to the posterior margins of the right lobe is reiterated and appears stable at 1 cm greatest dimension. Nodules: None LEFT LOBE: Measures 4.2 x 2.1 x 1.4 cm. Heterogeneous echotexture with hypervascular color Doppler blood flow reiterated. Nodules: None ISTHMUS: Measures 0.3 cm. Heterogeneous echotexture with hypervascular color Doppler blood flow reiterated. Nodules: None OTHER FINDINGS: None . IMPRESSION: Heterogeneous echotexture is reiterated and is stable in the interval as well as hypervascular changes on color Doppler blood flow as discussed above. Gland remains normal size overall with somewhat lobular exophytic component again noted at the midpole right lobe 1 cm greatest dimension, not significantly changed in size in the interval.
[2018-08-11] MEDS: Levothyroxine 100 mcg (0.1 mg) Inj IVP SCH (06:36)
--- NOTE | 2018-08-11 07:26 | CP.PCM.PN ---
<Pedro Luis Powell L - Last Filed: 08/11/18 15:05> Subjective - Date & Time of Evaluation Date of Evaluation: 08/11/18 Time of Evaluation: 07:25 - Subjective Subjective: Resident Progress Note for Hospitalist Service Patient examined at bedside. No acute events overnight. Patient still admits to fatigue, states she gets palpitations when ambulating. She admits to good PO intake. Denies fevers, chills, chest pain, shortness of breath, abdominal pain. Objective - Vital Signs/Intake and Output Vital Signs (last 24 hours): Temp Pulse Resp BP Pulse Ox 97.9 F 58 L 20 108/74 98 08/10/18 23:10 08/10/18 23:35 08/10/18 23:10 08/10/18 23:10 08/10/18 23:10 Intake and Output: 08/11/18 08/11/18 06:59 18:59 Intake Total 300 Balance 300 - Medications Medications: Current Medications Heparin Sodium (Porcine) (Heparin) 5,000 units SC Q12 [facility] Last Admin: 08/10/18 22:01 Dose: 5,000 units Levothyroxine Sodium (Synthroid) 100 mcg IVP DAILY@0630 [facility] Last Admin: 08/11/18 06:36 Dose: 100 mcg - Labs Labs: 08/10/18 10:52 08/10/18 10:52 - Additional Findings Additional findings: - Constitutional Appears: No Acute Distress - Head Exam Head Exam: ATRAUMATIC, NORMOCEPHALIC - Eye Exam Eye Exam: EOMI, Normal appearance - ENT Exam ENT Exam: Mucous Membranes Moist - Neck Exam Neck exam: Thyromegaly (bilateral goiter) - Respiratory Exam Respiratory Exam: Clear to Auscultation Bilateral, NORMAL BREATHING PATTERN. absent: Wheezes, Ronchi, Rales - Cardiovascular Exam Cardiovascular Exam: Bradycardia, +S1, +S2 - GI/Abdominal Exam GI & Abdominal Exam: Normal Bowel Sounds. 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 Plan: Teetee's thyroiditis - TSH 141 (H), Total T3 1.14 (L), Free T4 wnl - Thyroid US shows hypervascular changes, gland normal size overall with lobular exophytic component midpole right lobe 1 cm - Endocrinology consulted (Dr. Norman); recs appreciated - 100 mcg synthroid IV daily - 75 mcg synthroid PO given today - monitor in telemetry Symptomatic bradycardia - Likely 2/2 to uncontrolled hypothyroidism - monitor in telemetry - EKG: NSR bradycardia - followup ECHO - PT/OT PPX - SCDs, Heparin 5000 units SC Q12H Patient seen and case discussed in detail with Dr. Nikki Powell PGY-1 <Eric Jordan - Last Filed: 08/11/18 15:28> Objective - Vital Signs/Intake and Output Vital Signs (last 24 hours): Temp Pulse Resp BP Pulse Ox 97.9 F 58 L 20 129/83 95 08/11/18 07:00 08/11/18 12:00 08/11/18 07:00 08/11/18 07:00 08/11/18 07:00 Intake and Output: 08/11/18 08/11/18 06:59 18:59 Intake Total 300 Balance 300 - Medications Medications: Current Medications Heparin Sodium (Porcine) (Heparin) 5,000 units SC Q12 [facility] Last Admin: 08/11/18 10:27 Dose: 5,000 units Influenza Virus Vaccine (Flucelvax Quad [id number] Syr) 60 mcg IM .ONCE ONE Stop: 08/12/18 10:01 Levothyroxine Sodium (Synthroid) 100 mcg IVP DAILY@0630 [facility] Last Admin: 08/11/18 06:36 Dose: 100 mcg Levothyroxine Sodium (Synthroid) 75 mcg PO ONCE ONE Stop: 08/12/18 11:36 Pneumococcal Polyvalent Vaccine (Pneumovax 23 Vaccine) 0.5 ml IM .ONCE ONE Stop: 08/12/18 10:01 Polyethylene Glycol (Miralax) 17 gm PO DAILY PRN PRN Reason: Constipation - Labs Labs: 08/11/18 07:23 08/11/18 07:23 Attending/Attestation - Attestation I have personally seen and examined this patient.: Yes I have fully participated in the care of the patient.: Yes I have reviewed all pertinent clinical information, including history, physical exam and plan: Yes Notes (Text): 08/11/18 15:25 Medical attending: Patient was seen and examined by me. Agree with the above note by the resident The patient reports still having fatigue however not as much as before. The patient has been getting IV synthroid and PO synthroid as well Because of her weakness and long duration of not taking medications - will also check an echo as well On telemetry her HR is sinus bradycardia in the 50s. Eric Jordan
[2018-08-11 07:30] LABS: BASO # 0.1 K/uL (0.0-0.2); BASO % 1.2 % (0.0-2.0); EOS # 0.3 K/uL (0.0-0.7); EOS % 6.2 % (0.0-4.0); HEMOGLOBIN 12.8 g/dL (11.0-16.0); LYMPH # 2.1 K/uL (1.0-4.3); LYMPH % 39.4 % (20.0-40.0); MEAN CELL VOLUME 87.3 fL (81.0-99.0); MEAN CORPUSCULAR HEMOGLOBIN 29.3 pg (27.0-31.0); MEAN CORPUSCULAR HGB CONC 33.5 g/dL (33.0-37.0); MEAN PLATELET VOLUME 7.8 fL (7.2-11.7); MONO # 0.4 K/uL (0.0-0.8); MONO % 6.8 % (0.0-10.0); NEUT # 2.5 K/uL (1.8-7.0); NEUT % 46.4 % (50.0-75.0); RBC 4.37 Mil/uL (3.80-5.20); RED CELL DISTRIBUTION WIDTH 15.5 % (11.5-14.5); WHITE BLOOD COUNT 5.4 K/uL (4.8-10.8)
[2018-08-11 08:07] LABS: T4 9.55 ug/dL (5.5-11.0)
[2018-08-11 08:14] LABS: ALB/GLOB RATIO 1.2 (1.0-2.1); ALBUMIN 4.3 g/dL (3.5-5.0); ALT/SGPT 11 U/L (9-52); AST/SGOT 27 U/L (14-36); BLOOD UREA NITROGEN 18 mg/dL (7-17); CALCIUM 8.9 mg/dl (8.6-10.4); GFR NON-AFRICAN AMERICAN > 60
[2018-08-11 08:25] LABS: T3 1.14 nmol/L (1.49-2.60)
--- NOTE | 2018-08-11 09:15 | CARD ---
APPROVED REPORT Date of service: 08/09/2018 EKG Measurement Heart [id number] <Conclusion> Sinus bradycardia Otherwise normal ECG
[2018-08-11] MEDS ORDERED: POLYETHYLENE GLYCOL 3350 17 GM/Dose PACKET PO PRN (15:00)
--- NOTE | 2018-08-12 01:39 | PN ---
DATE: 08/11/2018 ENDO FOLLOWUP NOTE SUBJECTIVE: This is a 58-year-old female with recent overt hypothyroidism noted both historically, clinically and biochemically, presenting here with near myxedema and generalized body weakness and associated constitutional symptoms and is now being followed closely for metabolic management. Her latest thyroid studies done today showed a T4 of 9.55 with a free T4 of 1.12 and a TSH of 141. Her serum cortisol is 14.2 mcg/dL. She is receiving and tolerating very well the initiation of parenteral levothyroxine replacement therapy as given. We will continue the same levothyroxine given as 100 mcg IV push once daily as ordered. PLAN: We will obtain serial chemistry to supplement accordingly as needed. We will also obtain serial thyroid studies and titrate her dose regimen accordingly. Because of the near myxedema and the expected marked edema of the gastric mucosa we would hold off resumption of the oral levothyroxine therapy for now as clearly the therapy impaired obstruction of any oral levothyroxine medications and we will continue the IV levothyroxine given as 100 mcg daily as ordered. We will obtain serial thyroid studies and titrate her dose regimen accordingly. We will follow. Destiny Norman MD (Delete this signature block when dictator is a preceptor.) cc: MD Pranav (Delete if not dictated.)
[2018-08-12 04:40] VITALS: O2SAT 97
[2018-08-12] MEDS: Levothyroxine 100 mcg (0.1 mg) Inj IVP SCH (06:35)
--- NOTE | 2018-08-12 07:28 | CP.PCM.PN ---
Subjective - Date & Time of Evaluation Date of Evaluation: 08/12/18 Time of Evaluation: 07:26 - Subjective Subjective: PGY-1 Nguyen Medina D.O. Medicine progress note for Dr. Zavala's service: Patient was seen and examined this morning. Objective - Vital Signs/Intake and Output Vital Signs (last 24 hours): Temp Pulse Resp BP Pulse Ox 97.9 F 50 L 16 114/72 97 08/12/18 04:39 08/12/18 04:45 08/12/18 04:39 08/12/18 04:39 08/12/18 04:39 - Medications Medications: Current Medications Heparin Sodium (Porcine) (Heparin) 5,000 units SC Q12 [facility] Last Admin: 08/11/18 22:30 Dose: 5,000 units Influenza Virus Vaccine (Flucelvax Quad [id number] Syr) 60 mcg IM .ONCE ONE Stop: 08/12/18 10:01 Levothyroxine Sodium (Synthroid) 100 mcg IVP DAILY@0630 [facility] Last Admin: 08/12/18 06:35 Dose: 100 mcg Levothyroxine Sodium (Synthroid) 75 mcg PO ONCE ONE Stop: 08/12/18 11:36 Pneumococcal Polyvalent Vaccine (Pneumovax 23 Vaccine) 0.5 ml IM .ONCE ONE Stop: 08/12/18 10:01 Polyethylene Glycol (Miralax) 17 gm PO DAILY PRN PRN Reason: Constipation Last Admin: 08/11/18 22:29 Dose: 17 gm - Labs Labs: 08/11/18 07:23 08/11/18 07:23 Assessment and Plan - Assessment and Plan (Free Text) Assessment: 58 year old female with past medical history of Teetee's thyroiditis non compliant with medication admitted for symptomatic bradycardia. Plan: Teetee's thyroiditis - TSH 141 (H), Total T3 1.14 (L), Free T4 wnl - Thyroid US shows hypervascular changes, gland normal size overall with lobular exophytic component midpole right lobe 1 cm - Endocrinology consulted (Dr. Norman); recs appreciated - 100 mcg synthroid IV daily - 75 mcg synthroid PO given today - monitor in telemetry Symptomatic bradycardia - Likely 2/2 to uncontrolled hypothyroidism - monitor in telemetry - EKG: NSR bradycardia - followup ECHO - PT/OT Ppx: VTE: SCDs, Heparin 5000 units SC Q12H GI: not indicated Code status: full code Case discussed with attending, Dr. Zavala.
[2018-08-12 07:44] LABS: BASO % 0.9 % (0.0-2.0); EOS # 0.4 K/uL (0.0-0.7); EOS % 7.2 % (0.0-4.0); HEMOGLOBIN 13.1 g/dL (11.0-16.0); LYMPH % 34.6 % (20.0-40.0); MEAN CELL VOLUME 87.7 fL (81.0-99.0); MEAN CORPUSCULAR HEMOGLOBIN 29.1 pg (27.0-31.0); MEAN CORPUSCULAR HGB CONC 33.2 g/dL (33.0-37.0); MEAN PLATELET VOLUME 7.7 fL (7.2-11.7); MONO # 0.4 K/uL (0.0-0.8); MONO % 7.1 % (0.0-10.0); NEUT # 2.9 K/uL (1.8-7.0); NEUT % 50.2 % (50.0-75.0); RBC 4.52 Mil/uL (3.80-5.20); RED CELL DISTRIBUTION WIDTH 15.2 % (11.5-14.5); WHITE BLOOD COUNT 5.7 K/uL (4.8-10.8)
[2018-08-12 07:54] VITALS: BP 102/68; RESP 20; TEMP 98
[2018-08-12 08:16] LABS: ALB/GLOB RATIO 1.2 (1.0-2.1); ALBUMIN 4.4 g/dL (3.5-5.0); ALT/SGPT < 6 U/L (9-52); AST/SGOT 27 U/L (14-36); BLOOD UREA NITROGEN 18 mg/dL (7-17); CALCIUM 9.1 mg/dl (8.6-10.4); GFR NON-AFRICAN AMERICAN > 60
[2018-08-12] MEDS ORDERED: Pneumococcal 23-Valent Vaccine IM ONE (10:00)
[2018-08-12] MEDS ORDERED: Influenza Vaccine 60 mcg/0.5 mL SYR (4YR UP) IM ONE (10:00)
[2018-08-12] MEDS ORDERED: Levothyroxine 75 MCG TAB PO ONE ×2 (11:35→13:30)
--- NOTE | 2018-08-12 11:35 | CARD ---
APPROVED REPORT Date of service: 08/11/2018 EXAM: Two-dimensional and M-mode echocardiogram with Doppler and color Doppler. Other Information Quality : Rhythm : Bradycardia INDICATION Dizziness and Vertigo Congestive Heart Failure symptomatic hypothroid 2D DIMENSIONS IVSd0.8 (0.7-1.1cm)LVDd3.8 (3.9-5.9cm) PWd0.7 (0.7-1.1cm)LVDs2.5 (2.5-4.0cm) FS (%) 34.9 %LVEF (%)64.8 (>50%) LVEF (Salguero's)60 % M-Mode DIMENSIONS Left Atrium (MM)3.19 (2.5-4.0cm)IVSd0.63 (0.7-1.1cm) Aortic Root2.89 (2.2-3.7cm)LVDd4.66 (4.0-5.6cm) Aortic Cusp Exc.2.08 (1.5-2.0cm)PWd0.68 (0.7-1.1cm) FS (%) 37 %LVDs2.92 (2.0-3.8cm) LVEF (%)67 (>50%) Mitral Valve MV E Qhvwrwmt16.1cm/sMV A Zhaelaxz27.2cm/sE/A ratio1.3 TDI Lateral E' Peak V12.03cm/sMedial E' Peak V6.22cm/sE/Lateral E'5.7 E/Medial E'11.1 Tricuspid Valve TR Peak [id number]/sTR Peak [id number] <Conclusion> Left ventricle: thickness: normal; size: normal; overall ejection fraction: 65%: diastolic filling pressures: normal Mitral valve: annulus: normal: leaflets: normal: excursion: normal; no significant trans-mitral gradient: mild incompetence: left atrium: normal Aortic valve: leaflets: normal: excursion: normal; no significant trans-aortic gradient: no significant incompetence: aortic root: upper limit of normal Right sided Structures: Pulmonary valve: normal; no significant incompetence; Tricuspid valve: normal; mild incompetence: Intra-cardiac hemodynamics: pulmonary systolic pressures: normal; central venous pressures: normal No pericardial effusion
--- NOTE | 2018-08-12 13:38 | CP.PCM.DIS ---
Provider - Provider Date of Admission: 08/10/18 00:40 Attending physician: Andrew Zavala MD Primary care physician: Dr. Yo (clinic) Consults: 08/10/18 01:21 Endocrinology Consult Routine Comment: Consulting Provider: Destiny Norman Consulting Physician: Destiny Norman Reason for Consult: TSH 211, pulse 54, symptomatic, non compliant Time Spent in preparation of Discharge (in minutes): 45 Diagnosis - Discharge Diagnosis (1) Hypothyroidism Status: Chronic Priority: High (2) Teetee's thyroiditis Status: Chronic Priority: High (3) Bradycardia Status: Acute Priority: High (4) Noncompliance Status: Chronic Priority: High Hospital Course - Lab Results Lab Results: Most Recent Lab Values WBC 5.7 K/uL (4.8-10.8) 08/12/18 07:31 RBC 4.52 Mil/uL (3.80-5.20) 08/12/18 07:31 Hgb 13.1 g/dL (11.0-16.0) 08/12/18 07:31 Hct 39.6 % (34.0-47.0) 08/12/18 07:31 MCV 87.7 fL (81.0-99.0) 08/12/18 07:31 MCH 29.1 pg (27.0-31.0) 08/12/18 07:31 MCHC 33.2 g/dL (33.0-37.0) 08/12/18 07:31 RDW 15.2 % (11.5-14.5) H 08/12/18 07:31 Plt Count 308 K/uL (130-400) 08/12/18 07:31 MPV 7.7 fL (7.2-11.7) 08/12/18 07:31 Neut % (Auto) 50.2 % (50.0-75.0) 08/12/18 07:31 Lymph % (Auto) 34.6 % (20.0-40.0) 08/12/18 07:31 [place] % (Auto) 7.1 % (0.0-10.0) 08/12/18 07:31 Eos % (Auto) 7.2 % (0.0-4.0) H 08/12/18 07:31 Baso % (Auto) 0.9 % (0.0-2.0) 08/12/18 07:31 Neut # (Auto) 2.9 K/uL (1.8-7.0) 08/12/18 07:31 Lymph # (Auto) 2.0 K/uL (1.0-4.3) 08/12/18 07:31 [place] # (Auto) 0.4 K/uL (0.0-0.8) 08/12/18 07:31 Eos # (Auto) 0.4 K/uL (0.0-0.7) 08/12/18 07:31 Baso # (Auto) 0.0 K/uL (0.0-0.2) 08/12/18 07:31 Sodium 136 mmol/L (132-148) 08/12/18 07:31 Potassium 4.7 mmol/L (3.6-5.2) 08/12/18 07:31 Chloride 101 mmol/L (98-107) 08/12/18 07:31 Carbon Dioxide 28 mmol/L (22-30) 08/12/18 07:31 Anion Gap 12 (10-20) 08/12/18 07:31 BUN 18 mg/dL (7-17) H 08/12/18 07:31 Creatinine 0.7 mg/dL (0.7-1.2) 08/12/18 07:31 Est GFR ( Amer) > 60 08/12/18 07:31 Est GFR (Non-Af Amer) > 60 08/12/18 07:31 POC Glucose (mg/dL) 96 mg/dL (65-110) 08/10/18 16:33 Random Glucose 98 mg/dL (65-105) 08/12/18 07:31 Calcium 9.1 mg/dl (8.6-10.4) 08/12/18 07:31 Phosphorus 4.5 mg/dL (2.5-4.5) 08/12/18 07:31 Magnesium 1.8 mg/dL (1.6-2.3) 08/12/18 07:31 Total Bilirubin 1.0 mg/dL (0.2-1.3) 08/12/18 07:31 AST 27 U/L (14-36) 08/12/18 07:31 ALT < 6 U/L (9-52) L D 08/12/18 07:31 Alkaline Phosphatase 69 U/L (38-126) 08/12/18 07:31 Troponin I < 0.0120 ng/mL (0.00-0.120) 08/09/18 22:45 Total Protein 8.0 g/dL (6.3-8.3) 08/12/18 07:31 Albumin 4.4 g/dL (3.5-5.0) 08/12/18 07:31 Globulin 3.6 gm/dL (2.2-3.9) 08/12/18 07:31 Albumin/Globulin Ratio 1.2 (1.0-2.1) 08/12/18 07:31 Free T4 1.12 ng/dL (0.78-2.19) 08/11/18 07:23 Thyroxine (T4) 9.55 ug/dL (5.5-11.0) 08/11/18 07:23 Total T3 1.14 nmol/L (1.49-2.60) L 08/11/18 07:23 TSH 3rd Generation 141.00 mIU/L (0.46-4.68) H 08/11/18 07:23 Cortisol AM Sample 14.2 ug/dL (4.46-22.7) 08/11/18 07:23 - Hospital Course Hospital Course: 58 female with history hypothyroid and HLD presents to the ED with a 2 days history of feeling tired and weak. She also complains of neck swelling that has become gradually bigger. Patient reports she has not taken her Synthroid pills for 5 months because she doesn't like the way she feels with them. She got a sudden onset in the last 2 days, now feels worsening fatigue and malaise. Pt sa ys this happened to her 3 years ago but it was much worse, she passed out and woke up in the hospital. Pt says she has seen Dr Norman before in the past for her hypothyroidism as well. Pt says she was previously well controlled on 50mcg Synthroid presrcibed by Dr Yo her PMD. TSH 211 on admission. Free T4 wnl. Total T3 low. Endocrinology consulted and placed patient on IV levothyroxine. Patient was transitioned to oral levothyroixine. Thyroid US done, and did not show any significant changes from prior (hypervascular changes, gland normal size overall with lobular exophytic component midpole right lobe 1 cm). Upon discharge, patient reported her symptoms resolved. She was ambulating without difficulty. Her weakness and fatigue improved. Bradycardia was improved (sinus 50s). Patient was counseled on medication compliance and will follow-up at the clinic for follow-up labs and medication management. Discharge Exam - Head Exam Head Exam: ATRAUMATIC, NORMAL INSPECTION - Eye Exam Eye Exam: EOMI, Normal appearance, PERRL - ENT Exam ENT Exam: Mucous Membranes Moist - Neck Exam Neck exam: Normal Inspection - Respiratory Exam Respiratory Exam: Clear to PA & Lateral, NORMAL BREATHING PATTERN, UNREMARKABLE - Cardiovascular Exam Cardiovascular Exam: RRR, +S1, +S2 - GI/Abdominal Exam GI & Abdominal Exam: Soft, Unremarkable. absent: Distended - Extremities Exam Extremities exam: normal inspection - Back Exam Back exam: NORMAL INSPECTION - Neurological Exam Neurological exam: Alert, CN II-XII Intact, Normal Gait, Oriented x3 - Psychiatric Exam Psychiatric exam: Normal Affect, Normal Mood - Skin Skin Exam: Dry, Intact, Normal Color, Warm Discharge Plan - Discharge Medications Prescriptions: Levothyroxine [Synthroid] 100 mcg PO DAILY #30 tab - Follow Up Plan Condition: IMPROVED Disposition: HOME/ ROUTINE Patient education suggested?: Yes Instructions: Hypothyroidism (Underactive Thyroid) (DC), Levothyroxine Additional Instructions: Follow-up at the [facility] at [facility] within 3-5 days of discharge. They will recheck your thyroid levels in 4-6 weeks. It is very important that you take levothyroxine as prescribed. If symptoms recur, return to the nearest emergency department. Referrals: [facility] at [facility] [Outside] Destiny Norman MD [Medical Doctor] -
[2018-08-12 14:02] VITALS: PULSE 59
[2018-08-12 19:16] LABS: THYROGLOBULIN 179.3 ng/mL (2.8-40.9)
--- NOTE | 2018-08-13 08:39 | PN ---
DATE: 08/12/2018 ENDOCRINOLOGY FOLLOWUP NOTE LOCATION: Room 552. This is a 58-year-old female with recent overt and marked hypothyroidism both historically, clinically and biochemically with supervening near myxedema and is now being followed closely for metabolic management. He has tolerated the IV levothyroxine as given from admission to the present time. Her latest chemistry showed a BUN of 18, sodium 136, potassium 4.7, chloride 101, CO2 of 28, glucose 98, and creatinine 0.7. Her latest thyroid study showed a TSH of 141 with a T4 of 9.55. So at this time, we will continue the last dose of the levothyroxine given as 100 mcg once daily, IV push as given today. We will concur with this plan to switch her over now to oral levothyroxine starting at 75 mcg daily and will titrate below 100 mcg because of the body weight and also of the underlying marked hypothyroidism as noted thereof. Giving her 50 mcg or 75 mcg is very little, and it is clearly an underdosing because based on her body weight, she at least needs from 100 mcg to 125 mcg daily of the levothyroxine as lifelong replacement therapy. We will obtain serial thyroid studies and titrate her dose regimen accordingly. She will also be cleared for eventual discharge on oral levothyroxine at the higher dose of 100 mcg daily. Destiny Norman MD [facility] # [id number]
== END 2018-08-12 14:52 | disposition home or self-care (01) | DRG 424 ==
LOC: C.ER 21:55 → C.9E 08-10 00:40 → C.5S 08-10 01:12
PROVIDERS: ADMIT Internal Medicine; ATTEND Internal Medicine
DX: E06.3 Autoimmune thyroiditis (principal); R00.1 Bradycardia, unspecified; E78.5 Hyperlipidemia, unspecified; E04.9 Nontoxic goiter, unspecified; Z79.890 Hormone replacement therapy; Z87.440 Personal history of urinary (tract) infections; Z91.14 Patient's other noncompliance with medication regimen; Z91.19 Patient's noncompliance with other medical treatment and regimen

== ENCOUNTER 2018-11-14 01:18 | Observation (INO) | payer SELFPAY ==
[2018-11-14 01:18] VITALS: BMI 24.8
[2018-11-14 01:38] VITALS: TEMP 98
[2018-11-14] MEDS ORDERED: Sodium Chloride 0.9% 500 ML IV ONE ×2 (01:43→02:48)
[2018-11-14 02:25] LABS: URINE BILIRUBIN NEGATIVE (NEGATIVE); URINE BLOOD NEGATIVE (NEGATIVE); URINE CLARITY Clear (Clear); URINE COLOR Straw (YELLOW); URINE GLUCOSE (UA) NORMAL (Normal); URINE LEUKOCYTE ESTERASE 1+ Leu/uL (Negative); URINE PROTEIN NEGATIVE (NEGATIVE); URINE UROBILINOGEN NORMAL mg/dL (0.2-1.0)
[2018-11-14 02:33] LABS: BASO % 0.7 % (0.0-2.0); EOS % 3.9 % (0.0-4.0); HEMOGLOBIN 12.9 g/dL (11.0-16.0); LYMPH % 23.3 % (20.0-40.0); MEAN CELL VOLUME 87.3 fL (81.0-99.0); MEAN CORPUSCULAR HEMOGLOBIN 29.6 pg (27.0-31.0); MEAN PLATELET VOLUME 7.9 fL (7.2-11.7); MONO % 8.5 % (0.0-10.0); NEUT % 63.6 % (50.0-75.0); NRBC % 0.1 % (0.0-2.0); RBC 4.35 Mil/uL (3.80-5.20); RED CELL DISTRIBUTION WIDTH 13.4 % (11.5-14.5); WHITE BLOOD COUNT 8.6 K/uL (4.8-10.8)
[2018-11-14 02:34] LABS: BASO # 0.1 K/uL (0.0-0.2); EOS # 0.3 K/uL (0.0-0.7); MONO # 0.7 K/uL (0.0-0.8); NEUT # 5.5 K/uL (1.8-7.0)
[2018-11-14 03:32] LABS: ALB/GLOB RATIO 1.1 (1.0-2.1); ALBUMIN 4.3 g/dL (3.5-5.0); ALT/SGPT 21 U/L (9-52); AST/SGOT 29 U/L (14-36); BLOOD UREA NITROGEN 17 mg/dL (7-17); CALCIUM 9.1 mg/dl (8.6-10.4); GFR NON-AFRICAN AMERICAN > 60
--- NOTE | 2018-11-14 04:11 | CP.PCM.HP ---
<Kelly Vail - Last Filed: 11/14/18 05:17> History of Present Illness - History of Present Illness History of Present Illness: cc: dizziness Patient is a 58 year old female who presents tot the ED today after she reports she had an episode of "the room spinning" and weakness followed by a fall to the floor. Patient denies LOC or truma to head. She reports she has been having a stressful day and not drinking enough fluids, only 1 bottle of water all day. She reports vertigo with accompanying weakness followed by a loss of body tone with fall to the floor. She immediately got up, denies incontinence, tongue biting, episode of confusion s/p event. She then went to a friend;s house and back to her home where the police were waiting for her, as they were called by her daughter 2/2 to her inability to reach her mom on her cell phone. Patient reports the police instructed her to come to the ED. She reports a similar episode 3 yrs ago requiring hospitalization, and reports compliance with medications as prescribed. Patient denies chest pain, shortness of breath, nausea, radiating pain to extremities or jaw, decreased muscle strength, numbness, confusion. pmhx: hypothyroidism pshx: hysterectomy, cholecystectomy meds levothyroxine 100mcg allergies: PCN sochx: denies famhx: breast ca Present on Admission - Present on Admission Any Indicators Present on Admission: No Review of Systems - Constitutional Constitutional: Weakness. absent: Chills, Fever - EENT Eyes: absent: Blurred Vision, Change in Vision - Cardiovascular Cardiovascular: absent: Chest Pain, Irregular Heart Rhythm, Palpitations - Respiratory Respiratory: absent: Cough, Dyspnea - Gastrointestinal Gastrointestinal: absent: Abdominal Pain, Constipation, Diarrhea - Genitourinary Genitourinary: absent: Dysuria, Hematuria - Menstruation Menstruation: S/P Hysterectomy - Musculoskeletal Musculoskeletal: absent: Arthralgias, Myalgias - Integumentary Integumentary: absent: Change in Hair, Dry Skin - Neurological Neurological: Vertigo, Weakness. absent: Abnormal Speech, Confusion, Numbness, Tingling - Psychiatric Psychiatric: Anxiety Past Patient History - Infectious Disease Hx of Infectious Diseases: None - Past Medical History & Family History Past Medical History?: Yes - Past Social History Smoking Status: Never Smoked - CARDIAC Hx Cardiac Disorders: No - PULMONARY Hx Respiratory Disorders: No - NEUROLOGICAL Hx Seizures: No - HEENT Hx HEENT Problems: No - RENAL Hx Chronic Kidney Disease: No - ENDOCRINE/METABOLIC Hx Endocrine Disorders: Yes Hx Hypothyroidism: Yes - HEMATOLOGICAL/ONCOLOGICAL Hx Blood Disorders: Yes Hx Hepatitis B: Yes - INTEGUMENTARY Hx Dermatological Problems: No - MUSCULOSKELETAL/RHEUMATOLOGICAL Hx Falls: No - GASTROINTESTINAL Hx Gastrointestinal Disorders: No - GENITOURINARY/GYNECOLOGICAL Hx Genitourinary Disorders: Yes Hx Urinary Tract Infection: Yes - PSYCHIATRIC Hx Psychophysiologic Disorder: No Hx Substance Use: No - SURGICAL HISTORY Hx Surgeries: Yes Hx Cholecystectomy: Yes Hx Hysterectomy: Yes - ANESTHESIA Hx Anesthesia: Yes Hx Anesthesia Reactions: No Meds Allergies/Adverse Reactions: Allergies Allergy/AdvReac Type Severity Reaction Status Date / Time Penicillins Allergy RASH Verified 08/09/18 22:05 Physical Exam - Constitutional Appears: Well, No Acute Distress - Head Exam Head Exam: ATRAUMATIC, NORMAL INSPECTION, NORMOCEPHALIC - Eye Exam Eye Exam: EOMI, Normal appearance Pupil Exam: NORMAL ACCOMODATION, PERRL - ENT Exam ENT Exam: Mucous Membranes Moist, Normal Exam - Neck Exam Neck exam: Positive for: Normal Inspection - Respiratory Exam Respiratory Exam: Clear to Auscultation Bilateral, NORMAL BREATHING PATTERN - Cardiovascular Exam Cardiovascular Exam: REGULAR RHYTHM, +S1, +S2. absent: Tachycardia - GI/Abdominal Exam GI & Abdominal Exam: Normal Bowel Sounds, Soft. absent: Distended, Tenderness - Extremities Exam Extremities exam: Positive for: normal inspection. Negative for: calf tenderness, pedal edema - Back Exam Back exam: NORMAL INSPECTION - Neurological Exam Neurological exam: Alert, Oriented x3 Additional comments: positive dejon-hallpike sensation: WNL muscle strength 5/5 - Psychiatric Exam Psychiatric exam: Flat Affect - Skin Skin Exam: Dry, Intact, Normal Color, Warm Results - Vital Signs Recent Vital Signs: Last Vital Signs Temp 98 F 11/14/18 01:33 Pulse 60 11/14/18 03:10 Resp 14 11/14/18 03:10 BP 140/74 11/14/18 03:10 Pulse Ox 95 11/14/18 03:10 - Labs Result Diagrams: 11/14/18 02:30 11/14/18 02:30 Labs: Laboratory Results - last 24 hr 11/14/18 11/14/18 11/14/18 02:20 02:30 02:30 WBC 8.6 D RBC 4.35 Hgb 12.9 Hct 38.0 MCV 87.3 MCH 29.6 MCHC 34.0 RDW 13.4 Plt Count 294 MPV 7.9 Neut % (Auto) 63.6 Lymph % (Auto) 23.3 Gordon % (Auto) 8.5 Eos % (Auto) 3.9 Baso % (Auto) 0.7 Neut # (Auto) 5.5 Lymph # (Auto) 2.0 Gordon # (Auto) 0.7 Eos # (Auto) 0.3 Baso # (Auto) 0.1 Sodium 140 Potassium 4.5 Chloride 102 Carbon Dioxide 26 Anion Gap 16 BUN 17 Creatinine 0.6 L Est GFR ( Amer) > 60 Est GFR (Non-Af Amer) > 60 Random Glucose 108 H Calcium 9.1 Total Bilirubin 0.6 AST 29 ALT 21 Alkaline Phosphatase 88 Troponin I < 0.0120 Total Protein 8.4 H Albumin 4.3 Globulin 4.1 H Albumin/Globulin Ratio 1.1 Free T4 TSH 3rd Generation < 0.02 L Urine Color Straw Urine Clarity Clear Urine pH 5.0 Ur Specific Rudolph 1.008 Urine Protein Negative Urine Glucose (UA) Normal Urine Ketones Negative Urine Blood Negative Urine Nitrate Negative Urine Bilirubin Negative Urine Urobilinogen Normal Ur Leukocyte Esterase 1+ H Urine WBC (Auto) 2 Urine RBC (Auto) 1 11/14/18 02:30 WBC RBC Hgb Hct MCV MCH MCHC RDW Plt Count MPV Neut % (Auto) Lymph % (Auto) Gordon % (Auto) Eos % (Auto) Baso % (Auto) Neut # (Auto) Lymph # (Auto) [place] # (Auto) Eos # (Auto) Baso # (Auto) Sodium Potassium Chloride Carbon Dioxide Anion Gap BUN Creatinine Est GFR ( Amer) Est GFR (Non-Af Amer) Random Glucose Calcium Total Bilirubin AST ALT Alkaline Phosphatase Troponin I Total Protein Albumin Globulin Albumin/Globulin Ratio Free T4 2.29 H TSH 3rd Generation Urine Color Urine Clarity Urine pH Ur Specific Rudolph Urine Protein Urine Glucose (UA) Urine Ketones Urine Blood Urine Nitrate Urine Bilirubin Urine Urobilinogen Ur Leukocyte Esterase Urine WBC (Auto) Urine RBC (Auto) Assessment & Plan - Assessment and Plan (Free Text) Assessment: 58 year old female with pmhx of hypothyroidism admitted s/p syncopal event Plan: Syncope -CT head: no acute abnormality -EKG: NSR @64 -trop negative x1, f/u SEB x2 -monitor on telemetry -f/u MRI brain -IVF, NS @100 -start meclizine 25mg TID prn -f/u orthostatics -f/u echo -fall precautions Hypothyroidism -TSH <0.02 -T4 2.29 -continue home meds, levothyroxine 100mcg Ppx GI: not indicated VTE: SCDs Discussed with Dr. Younger -Kelly Vail, PGY-1 <Wilfred Younger - Last Filed: 11/14/18 06:37> Results - Vital Signs Recent Vital Signs: Last Vital Signs Temp 98 F 11/14/18 01:33 Pulse 65 11/14/18 04:54 Resp 16 11/14/18 04:54 BP 138/70 11/14/18 04:54 Pulse Ox 97 11/14/18 06:03 - Labs Result Diagrams: 11/14/18 02:30 11/14/18 02:30 Labs: Laboratory Results - last 24 hr 11/14/18 11/14/18 11/14/18 02:20 02:30 02:30 WBC 8.6 D RBC 4.35 Hgb 12.9 Hct 38.0 MCV 87.3 MCH 29.6 MCHC 34.0 RDW 13.4 Plt Count 294 MPV 7.9 Neut % (Auto) 63.6 Lymph % (Auto) 23.3 [place] % (Auto) 8.5 Eos % (Auto) 3.9 Baso % (Auto) 0.7 Neut # (Auto) 5.5 Lymph # (Auto) 2.0 [place] # (Auto) 0.7 Eos # (Auto) 0.3 Baso # (Auto) 0.1 Sodium 140 Potassium 4.5 Chloride 102 Carbon Dioxide 26 Anion Gap 16 BUN 17 Creatinine 0.6 L Est GFR ( Amer) > 60 Est GFR (Non-Af Amer) > 60 Random Glucose 108 H Calcium 9.1 Total Bilirubin 0.6 AST 29 ALT 21 Alkaline Phosphatase 88 Troponin I < 0.0120 Total Protein 8.4 H Albumin 4.3 Globulin 4.1 H Albumin/Globulin Ratio 1.1 Free T4 Free T3 pg/mL 5.19 TSH 3rd Generation < 0.02 L Urine Color Straw Urine Clarity Clear Urine pH 5.0 Ur Specific Rud[place] 1.008 Urine Protein Negative Urine Glucose (UA) Normal Urine Ketones Negative Urine Blood Negative Urine Nitrate Negative Urine Bilirubin Negative Urine Urobilinogen Normal Ur Leukocyte Esterase 1+ H Urine WBC (Auto) 2 Urine RBC (Auto) 1 11/14/18 02:30 WBC RBC Hgb Hct MCV MCH MCHC RDW Plt Count MPV Neut % (Auto) Lymph % (Auto) Gordon % (Auto) Eos % (Auto) Baso % (Auto) Neut # (Auto) Lymph # (Auto) Gordon # (Auto) Eos # (Auto) Baso # (Auto) Sodium Potassium Chloride Carbon Dioxide Anion Gap BUN Creatinine Est GFR ( Amer) Est GFR (Non-Af Amer) Random Glucose Calcium Total Bilirubin AST ALT Alkaline Phosphatase Troponin I Total Protein Albumin Globulin Albumin/Globulin Ratio Free T4 2.29 H Free T3 pg/mL TSH 3rd Generation Urine Color Urine Clarity Urine pH Ur Specific Rudolph Urine Protein Urine Glucose (UA) Urine Ketones Urine Blood Urine Nitrate Urine Bilirubin Urine Urobilinogen Ur Leukocyte Esterase Urine WBC (Auto) Urine RBC (Auto) Assessment & Plan - Date & Time Date: 11/14/18 (I have seen and examined the patient. I agree with the findings and plan of care as documented by Dr. Vail. Patient with syncope. CT head negative. check MRI brain in AM. ROMIx3 with EKG. 2D Echo. Carotid dopplers. Fall precautions. Also with history of hypothyroidism. May need to adjust medication based. Monitor for acute changes.) Time: 06:36 Attending/Attestation - Attestation I have personally seen and examined this patient.: Yes I have fully participated in the care of the patient.: Yes I have reviewed all pertinent clinical information: Yes
[2018-11-14] MEDS ORDERED: Sodium Chloride 0.9% 1,000 ML IV SCH (04:45)
[2018-11-14 04:55] VITALS: BP 138/70; PULSE 65; RESP 16; O2SAT 97
--- NOTE | 2018-11-14 04:58 | C.PDOC ---
History Of Present Illness 58 year old female brought in by EMS after she syncopized while in the bathroom at work. Patient states she began having blurry vision, palpitations, then syncopized. She regained consciousness after hitting her head on the floor. D enies vomiting, neck pain, photophobia, extremity weakness, chest pain, SOB, recent prolonged travel, and non coagulable state. Time Seen by Provider: 11/14/18 01:43 Chief Complaint (Nursing): Syncope History Per: Patient History/Exam Limitations: no limitations Onset/Duration Of Symptoms: Hrs Current Symptoms Are (Timing): Still Present Number Of Syncopal Episodes: 1 Activity At Onset Of Symptoms: Walking Associated Symptoms Preceding Syncopal Episode: Other (Blurry vision, Palpitations) Fall Associated With With Symptoms: Yes, Positive Injury Recent travel outside of the [place]: No - Symptoms Of CVA Associated Symptoms: denies: Impaired Speech, Seizure Activity, New Vision Deficit(Left), New Vision Deficit(Right), Decreased Ability To Walk, New Confusion Past Medical History Reviewed: Historical Data, Nursing Documentation, Vital Signs Vital Signs: Last Vital Signs Temp 98 F 11/14/18 01:33 Pulse 65 11/14/18 04:54 Resp 16 11/14/18 04:54 BP 138/70 11/14/18 04:54 Pulse Ox 97 11/14/18 04:54 Primary Care Provider: Non [facility] Provider, - Medical History PMH: Hypothyroidism Denies: Chronic Kidney Disease, Seizures Surgical History: Cholecystectomy Family History: States: Unknown Family Hx - Social History Hx Tobacco Use: No Hx Alcohol Use: No Hx Substance Use: No - Immunization History Hx Tetanus Toxoid Vaccination: No Hx Influenza Vaccination: No Hx Pneumococcal Vaccination: No Review Of Systems Constitutional: Negative for: Fever, Chills Cardiovascular: Negative for: Chest Pain Respiratory: Negative for: Shortness of Breath Gastrointestinal: Negative for: Vomiting Musculoskeletal: Negative for: Neck Pain Neurological: Positive for: Other (Syncope). Negative for: Weakness Physical Exam - Physical Exam Appears: Non-toxic Skin: Warm Head: Normacephalic, No Abrasion, No Laceration, Other (Mild small hematoma to right parietal scalp) Eye(s): bilateral: Normal Inspection, PERRL, EOMI Oral Mucosa: Moist Neck: Normal, No Midline Cervical Tenderness, No Paracervical Tenderness, Supple Chest: Symmetrical, No Tenderness Cardiovascular: Rhythm Regular Respiratory: Normal Breath Sounds, No Rales, No Rhonchi, No Wheezing Gastrointestinal/Abdominal: Soft, No Tenderness Back: No Vertebral Tenderness, No Paraspinal Tenderness Extremity: Normal ROM (x4) Pulses: Left Radial: Normal, Right Radial: Normal, Left Dorsalis Pedis: Normal, Right Dorsalis Pedis: Normal Neurological/Psych: Oriented x3, Normal Speech, Normal Motor, Normal Sensation, Other (No facial paresis, No focal deficit) Gait: Steady ED Course And Treatment - Laboratory Results Result Diagrams: 11/14/18 02:30 11/14/18 02:30 Lab Results: Troponin I < 0.0120 ng/mL (0.00-0.120) 11/14/18 02:30 Total Bilirubin 0.6 mg/dL (0.2-1.3) 11/14/18 02:30 AST 29 U/L (14-36) 11/14/18 02:30 ALT 21 U/L (9-52) 11/14/18 02:30 Alkaline Phosphatase 88 U/L (38-126) 11/14/18 02:30 Total Protein 8.4 g/dL (6.3-8.3) H 11/14/18 02:30 Albumin 4.3 g/dL (3.5-5.0) 11/14/18 02:30 Globulin 4.1 gm/dL (2.2-3.9) H 11/14/18 02:30 Albumin/Globulin Ratio 1.1 (1.0-2.1) 11/14/18 02:30 Urine Color Straw (YELLOW) 11/14/18 02:20 Urine Clarity Clear (Clear) 11/14/18 02:20 Urine pH 5.0 (5.0-8.0) 11/14/18 02:20 Ur Specific Alger 1.008 (1.003-1.030) 11/14/18 02:20 Urine Protein Negative mg/dL (NEGATIVE) 11/14/18 02:20 Urine Glucose (UA) Normal mg/dL (Normal) 11/14/18 02:20 Urine Ketones Negative mg/dL (NEGATIVE) 11/14/18 02:20 Urine Blood Negative (NEGATIVE) 11/14/18 02:20 Urine Nitrate Negative (NEGATIVE) 11/14/18 02:20 Urine Bilirubin Negative (NEGATIVE) 11/14/18 02:20 Urine Urobilinogen Normal mg/dL (0.2-1.0) 11/14/18 02:20 Ur Leukocyte Esterase 1+ Blane/uL (Negative) H 11/14/18 02:20 Urine WBC (Auto) 2 /hpf (0-5) 11/14/18 02:20 Urine RBC (Auto) 1 /hpf (0-3) 11/14/18 02:20 ECG: Interpreted By Me, Viewed By Me ECG Rhythm: Sinus Rhythm ECG Interpretation: Normal Interpretation Of ECG: No acute ST/T changes Rate From EC O2 Sat by Pulse Oximetry: 97 (Room air) Pulse Ox Interpretation: Normal - CT Scan/US CT Head Other Rad Studies (CT/US): Read By Radiologist, Radiology Report Reviewed CT/US Interpretation: CT SCAN OF THE BRAIN WITHOUT IV CONTRAST. CLINICAL INDICATION: Altered mental status. TECHNIQUE: Axial images of the brain obtained without IV contrast administration. Normal size of the ventricles and extra-axial spaces for the patient's age. Normal white matter tracts of the supratentorial brain. Normal basal ganglia and thalami. Normal brainstem. Normal cerebellum. There is no demonstrated extra-axial, intraparenchymal, or intraventricular hemorrhage. There are no findings of an acute ischemic infarction. Normal calvarium. There is no demonstrated fracture. Normal soft tissue structures. Normal visualized paranasal sinuses. IMPRESSION: Normal unenhanced CT scan of the brain. Progress Note: CT head and labs diagnostics reviewed, discussed case with Dr. Younger, hospitalist, accepts patient to his service under tele/obs. Disposition - Disposition Disposition: HOSPITALIZED Disposition Time: 04:30 Condition: FAIR - Clinical Impression Clinical Impression: Syncope, Palpitations, Head injury - PA / CLEAN UP HELPER BANQUET / Resident Statement MD/DO has reviewed & agrees with the documentation as recorded. - Scribe Statement The provider has reviewed the documentation as recorded by the Scribameena Carroll All medical record entries made by the Scribe were at my direction and personally dictated by me. I have reviewed the chart and agree that the record accurately reflects my personal performance of the history, physical exam, medical decision making, and the department course for this patient. I have also personally directed, reviewed, and agree with the discharge instructions and disposition.
--- NOTE | 2018-11-14 06:26 | CP.PCM.DIS ---
Provider - Provider Date of Admission: 11/14/18 04:03 Attending physician: Wilfred Younger MD Time Spent in preparation of Discharge (in minutes): 20 Diagnosis - Discharge Diagnosis (1) Left against medical advice Status: Acute Hospital Course - Lab Results Lab Results: Most Recent Lab Values WBC 8.6 K/uL (4.8-10.8) D 11/14/18 02:30 RBC 4.35 Mil/uL (3.80-5.20) 11/14/18 02:30 Hgb 12.9 g/dL (11.0-16.0) 11/14/18 02:30 Hct 38.0 % (34.0-47.0) 11/14/18 02:30 MCV 87.3 fL (81.0-99.0) 11/14/18 02:30 MCH 29.6 pg (27.0-31.0) 11/14/18 02:30 MCHC 34.0 g/dL (33.0-37.0) 11/14/18 02:30 RDW 13.4 % (11.5-14.5) 11/14/18 02:30 Plt Count 294 K/uL (130-400) 11/14/18 02:30 MPV 7.9 fL (7.2-11.7) 11/14/18 02:30 Neut % (Auto) 63.6 % (50.0-75.0) 11/14/18 02:30 Lymph % (Auto) 23.3 % (20.0-40.0) 11/14/18 02:30 Dixie % (Auto) 8.5 % (0.0-10.0) 11/14/18 02:30 Eos % (Auto) 3.9 % (0.0-4.0) 11/14/18 02:30 Baso % (Auto) 0.7 % (0.0-2.0) 11/14/18 02:30 Neut # (Auto) 5.5 K/uL (1.8-7.0) 11/14/18 02:30 Lymph # (Auto) 2.0 K/uL (1.0-4.3) 11/14/18 02:30 Dixie # (Auto) 0.7 K/uL (0.0-0.8) 11/14/18 02:30 Eos # (Auto) 0.3 K/uL (0.0-0.7) 11/14/18 02:30 Baso # (Auto) 0.1 K/uL (0.0-0.2) 11/14/18 02:30 Sodium 140 mmol/L (132-148) 11/14/18 02:30 Potassium 4.5 mmol/L (3.6-5.2) 11/14/18 02:30 Chloride 102 mmol/L (98-107) 11/14/18 02:30 Carbon Dioxide 26 mmol/L (22-30) 11/14/18 02:30 Anion Gap 16 (10-20) 11/14/18 02:30 BUN 17 mg/dL (7-17) 11/14/18 02:30 Creatinine 0.6 mg/dL (0.7-1.2) L 11/14/18 02:30 Est GFR ( Amer) > 60 11/14/18 02:30 Est GFR (Non-Af Amer) > 60 11/14/18 02:30 Random Glucose 108 mg/dL (65-105) H 11/14/18 02:30 Calcium 9.1 mg/dl (8.6-10.4) 11/14/18 02:30 Total Bilirubin 0.6 mg/dL (0.2-1.3) 11/14/18 02:30 AST 29 U/L (14-36) 11/14/18 02:30 ALT 21 U/L (9-52) 11/14/18 02:30 Alkaline Phosphatase 88 U/L (38-126) 11/14/18 02:30 Troponin I < 0.0120 ng/mL (0.00-0.120) 11/14/18 02:30 Total Protein 8.4 g/dL (6.3-8.3) H 11/14/18 02:30 Albumin 4.3 g/dL (3.5-5.0) 11/14/18 02:30 Globulin 4.1 gm/dL (2.2-3.9) H 11/14/18 02:30 Albumin/Globulin Ratio 1.1 (1.0-2.1) 11/14/18 02:30 Free T4 2.29 ng/dL (0.78-2.19) H 11/14/18 02:30 Free T3 pg/mL 5.19 pg/mL (2.77-5.27) 11/14/18 02:30 TSH 3rd Generation < 0.02 mIU/L (0.46-4.68) L 11/14/18 02:30 Urine Color Straw (YELLOW) 11/14/18 02:20 Urine Clarity Clear (Clear) 11/14/18 02:20 Urine pH 5.0 (5.0-8.0) 11/14/18 02:20 Ur Specific [place] 1.008 (1.003-1.030) 11/14/18 02:20 Urine Protein Negative mg/dL (NEGATIVE) 11/14/18 02:20 Urine Glucose (UA) Normal mg/dL (Normal) 11/14/18 02:20 Urine Ketones Negative mg/dL (NEGATIVE) 11/14/18 02:20 Urine Blood Negative (NEGATIVE) 11/14/18 02:20 Urine Nitrate Negative (NEGATIVE) 11/14/18 02:20 Urine Bilirubin Negative (NEGATIVE) 11/14/18 02:20 Urine Urobilinogen Normal mg/dL (0.2-1.0) 11/14/18 02:20 Ur Leukocyte Esterase 1+ Blane/uL (Negative) H 11/14/18 02:20 Urine WBC (Auto) 2 /hpf (0-5) 11/14/18 02:20 Urine RBC (Auto) 1 /hpf (0-3) 11/14/18 02:20 - Hospital Course Hospital Course: Upon arrival to the 5th floor nursing pages to inform that patient requests to leave AMA: Patient wants to leave against medical advice, AMA. Benefits of staying for further workup and treatment of her syncopal episode were explained and patient wants to leave. Risks of leaving against medical advice were explained to patient, including unstable vitals, MS, cardiac arrest, stroke and . Patient understands these risks as explained and chooses to leave regardless as she has a court date to get to this morning and reports she is no longer experiencing vertigo. Patient instructed to return to the nearest emergency department immediately should she experience any worsening of symptoms. Patient understands and agrees. HPI on admission: Patient is a 58 year old female who presents tot the ED today after she reports she had an episode of "the room spinning" and weakness followed by a fall to the floor. Patient denies LOC or truma to head. She reports she has been having a stressful day and not drinking enough fluids, only 1 bottle of water all day. She reports vertigo with accompanying weakness followed by a loss of body tone with fall to the floor. She immediately got up, denies incontinence, tongue biting, episode of confusion s/p event. She then went to a friend;s house and back to her home where the police were waiting for her, as they were called by her daughter 2/2 to her inability to reach her mom on her cell phone. Patient reports the police instructed her to come to the ED. She reports a similar e pisode 3 yrs ago requiring hospitalization, and reports compliance with medications as prescribed. Patient denies chest pain, shortness of breath, nausea, radiating pain to extremities or jaw, decreased muscle strength, numbness, confusion. Discharge Exam - Head Exam Head Exam: ATRAUMATIC (refer to H & P), NORMAL INSPECTION, NORMOCEPHALIC Discharge Plan - Follow Up Plan Condition: FAIR Disposition: AGAINST MEDICAL ADVICE Additional Instructions: Patient wants to leave against medical advice, AMA. Benefits of staying for further workup and treatment of her syncopal episode were explained and patient wants to leave. Risks of leaving against medical advice were explained to patient, including unstable vitals, MS, cardiac arrest, stroke and . Patient understands these risks as explained and chooses to leave regardless as she has a court date to get to this morning and reports she is no longer experiencing vertigo. Patient instructed to return to the nearest emergency department immediately should she experience any worsening of symptoms. Patient understands and agrees.
[2018-11-14] MEDS ORDERED: Levothyroxine 100 MCG TAB PO SCH (06:30)
--- NOTE | 2018-11-14 08:15 | CT ---
Date of service: 11/14/2018 PROCEDURE: CT HEAD WITHOUT CONTRAST. HISTORY: Syncope, head trauma COMPARISON: 08/22/2013. TECHNIQUE: Axial computed tomography images were obtained through the head/brain without intravenous contrast. Radiation dose: Total exam DLP = 988.79 mGy-cm. This CT exam was performed using one or more of the following dose reduction techniques: Automated exposure control, adjustment of the mA and/or kV according to patient size, and/or use of iterative reconstruction technique. FINDINGS: HEMORRHAGE: No intracranial hemorrhage. BRAIN: Montero-white matter differentiation is preserved. There is no mass, mass effect or abnormal extra-axial fluid collection. There is no territorial infarction. The midline sagittal structures are normal. VENTRICLES: The ventricles are normal in size, shape and configuration. CALVARIUM: There is no calvarial fracture or extracranial soft tissue swelling. PARANASAL SINUSES: Predominantly clear. MASTOID AIR CELLS: Predominantly clear. OTHER FINDINGS: None. IMPRESSION: No acute intracranial abnormality. A preliminary report was provided by [email or web address].
[2018-11-14] MEDS ORDERED: Enoxaparin 40 mg Syringe SC SCH (10:00)
--- NOTE | 2018-11-17 13:44 | CARD ---
APPROVED REPORT Date of service: 11/14/2018 EKG Measurement Heart [id number] <Conclusion> Normal sinus rhythm Normal ECG
== END 2018-11-14 06:45 | disposition left against medical advice (07) ==
LOC: C.ER 01:18 → C.5S 04:03
PROVIDERS: ADMIT Family Medicine; ATTEND Family Medicine
DX: R55 Syncope and collapse (principal); R00.2 Palpitations; E03.9 Hypothyroidism, unspecified; S09.90XA Unspecified injury of head, initial encounter; W18.30XA Fall on same level, unspecified, initial encounter
CPT/HCPCS: 70450; 80053; 81001; 82948; 84439; 84443; 84481; 84484; 85025; 99285; G0378; J7030; J7040